=== PATIENT | male | born 2000 | race Asian ===

== ENCOUNTER 2019-08-02 01:34 | Emergency (ER) | payer BC, OTHER ==
[~2019-08-02] VITALS: Ht 182.9 cm; Wt 72.6 kg
--- NOTE | 2019-08-02 01:57 | NUR ---
BIBS FOR C/O L KNEE PAIN 2/10 WHEN NOT MOVING AND SWELLING AFTER KNEELING ON THE FLOOR. PT STATED HE FELL OFF SCOOTER X2 WEEKS AGO. WENT TO URGENT CARE WHICH THEY STATED "EVERYTHING WAS OKAY." PT UNABLE TO FLEX L KNEE. MD AT BEDSIDE FOR EVAL. NO ACUTE DISTRESS NOTED.
[2019-08-02] MEDS ORDERED: HYDROCODONE/APAP 5/325MG 1 EACH TABLET ONE (02:04)
--- NOTE | 2019-08-02 02:18 | NUR ---
Patient is resting comfortably in bed with eyes closed. Easily aroused. VSS.
[2019-08-02] MEDS ORDERED: HYDROCODONE/APAP 5/325MG 1 EACH TABLET PO ONE (02:30)
[2019-08-02] MEDS ORDERED: CEPHALEXIN MONOHYDRATE 500 MG CAPSULE PO ONE ×2 (03:45→04:00)
--- NOTE | 2019-08-02 03:48 | NUR ---
EMT AT BEDSIDE FOR L KNEE IMMOBILIZER PLACEMENT AND SHAILESH WRAP. +CRUTCHES.
--- NOTE | 2019-08-02 04:05 | NUR ---
Patient discharged to home in stable condition. Written and verbal after care instructions given. Patient verbalizes understanding of instruction and RX. PT amb using crutches. pt was able to demonstrate crutch use. Pt walked around the ED.
[2019-08-02 04:10] VITALS: BP 123/69
== END 2019-08-02 04:11 | disposition home or self-care (01) ==
LOC: ER 01:36
DX: S83.8X2A Sprain of other specified parts of left knee, initial encounter (principal); M70.42 Prepatellar bursitis, left knee; W05.1XXA Fall from non-moving nonmotorized scooter, initial encounter; Y93.89 Activity, other specified; Y92.89 Other specified places as the place of occurrence of the external cause; Y99.8 Other external cause status
CPT/HCPCS: 73564-TC